=== PATIENT | female | born 1930 | race Caucasian/White ===

== ENCOUNTER → 2019-08-09 | Outpatient (CLI) | payer OTHER ==
[~2019-08-09] MED LIST: ACCUPRIL40 MG PO; AMITRIPTYLINE H25 M2 PO; ASTELIN30 ML NS; ASTEPRO; CELEBREX 200 M200 MG PO; ENDOCET 7.5-321 EACH PO; HYDROCODON-ACE1 EAC5 PO; LIPITOR10 MG PO; LOTEMAX5 ML OP; MECLIZINE 25 MG25 M1 PO; MELOXICAM7.5 MG PO; METAMUCIL0.52 GM PO; MIRALAX255 GM PO; MURO-128 5% OPH15 M1 OP; OMEPRAZOLE PO; OXYCODON-ACETA1 EAC1 PO; OXYCODONE HCL15 MG PO; OXYCODONE HCL5 M1 PO; PREMARIN0.625 MG PO; QUINAPRIL 20 MG20 MG PO; STOOL SOFTENER1 EAC2 PO; TIMOLOL OP; TOPROL XL25 MG PO; TRANSDERM-SCO1 PATCH TD; TYLENOL EX-STR500 M2 PO; VITAMIN D1000 UNI1 PO; VITAMIN D250000 UNIT PO
== END ==
LOC: SJCVCIMAG 14:20 → SJCVC 14:20
DX: I08.3 Combined rheumatic disorders of mitral, aortic and tricuspid valves (principal); I48.91 Unspecified atrial fibrillation; I12.9 Hypertensive chronic kidney disease with stage 1 through stage 4 chronic kidney disease, or unspecified chronic kidney disease; N18.3 Chronic kidney disease, stage 3 (moderate); E78.00 Pure hypercholesterolemia, unspecified; I27.20 Pulmonary hypertension, unspecified; J90 Pleural effusion, not elsewhere classified

== ENCOUNTER → 2019-08-21 | Outpatient (CLI) | payer OTHER | LOC: SJCVC 10:24 | DX: I48.91 Unspecified atrial fibrillation (principal); R94.31 Abnormal electrocardiogram [ECG] [EKG]; I13.0 Hypertensive heart and chronic kidney disease with heart failure and stage 1 through stage 4 chronic kidney disease, or unspecified chronic kidney disease; I50.9 Heart failure, unspecified; N18.3 Chronic kidney disease, stage 3 (moderate); D68.59 Other primary thrombophilia; I38 Endocarditis, valve unspecified; J90 Pleural effusion, not elsewhere classified; Z90.710 Acquired absence of both cervix and uterus; Z90.13 Acquired absence of bilateral breasts and nipples; Z79.899 Other long term (current) drug therapy; Z87.891 Personal history of nicotine dependence ==

== ENCOUNTER → 2020-02-20 | Outpatient (CLI) | payer OTHER | LOC: SJCVCIMAG 07:19 | PROVIDERS: ATTEND Internal Medicine Cardiovascular Disease | DX: I08.8 Other rheumatic multiple valve diseases (principal); R94.31 Abnormal electrocardiogram [ECG] [EKG]; I49.49 Other premature depolarization; I48.91 Unspecified atrial fibrillation; D68.59 Other primary thrombophilia; E78.00 Pure hypercholesterolemia, unspecified; I13.0 Hypertensive heart and chronic kidney disease with heart failure and stage 1 through stage 4 chronic kidney disease, or unspecified chronic kidney disease; I50.9 Heart failure, unspecified; N18.30 Chronic kidney disease, stage 3 unspecified; J90 Pleural effusion, not elsewhere classified; Z79.899 Other long term (current) drug therapy; Z87.891 Personal history of nicotine dependence ==